=== PATIENT | female | born 1980 | race Caucasian/White ===

== ENCOUNTER 2016-08-16 09:30 | Emergency (ER) | payer OTHER ==
[2016-08-16 09:44] VITALS: BP 109/76; PULSE 72; TEMP 97.7; BMI 28.3
[2016-08-16] MEDS ORDERED: OXYCODONE/APAP 5/325MG COMBO TABLET PO ONE (10:40)
[2016-08-16] MEDS ORDERED: OXYCODONE/APAP 5/325MG COMBO TABLET ONE (10:45)
--- NOTE | 2016-08-16 10:56 | PDOC ---
History of Present Illness - General Chief Complaint: Pain, Acute Stated Complaint: FALL/ SWOLLEN RT KNEE Time Seen by Provider: 08/16/16 10:07 History Source: Patient Exam Limitations: No Limitations - History of Present Illness Initial Comments: 08/16/16 10:52 08/16/16 11:29 tripped on shoelace and fell onto left knee- unable to bend or bear weight . 08/16/16 11:41 Occurred: reports: just prior to arrival, this morning Severity: reports: mild, moderate Pain Location: reports: lower extremity (left patella ) Method of Injury: Yes: fall Modifying Factors: improves with: None Associated Symptoms (Fall): denies symptoms Past History - Travel Traveled outside of the country in the last 30 days: No Close contact w/someone who was outside of country & ill: No - Past Medical History Allergies/Adverse Reactions: Allergies Allergy/AdvReac Type Severity Reaction Status Date / Time No Known Allergies Allergy Verified 08/16/16 09:37 Home Medications: Ambulatory Orders Oxycodone HCl/Acetaminophen [Percocet 5-325 mg Tablet -] 1 - 2 tab PO Q4H PRN # 20 tablet MDD 4 08/16/16 Other medical history: denies - Psycho/Social/Smoking Cessation Hx Suicidal Ideation: No Smoking History: Never smoked Information on smoking cessation initiated: No Hx Alcohol Use: No Drug/Substance Use Hx: No Substance Use Type: None Trauma Specific PMHX - Complaint Specific PMHX Back Injury: No Neck Injury: No Review of Systems - Review of Systems Able to Perform ROS?: Yes Is the patient limited Serbian proficient: Yes Constitutional: Yes: See HPI, Malaise. No: Symptoms Reported HEENTM: Yes: See HPI. No: Symptoms Reported Respiratory: Yes: See HPI. No: Symptoms reported Musculoskeletal: Yes: Symptoms Reported, Joint Pain, Joint Swelling, Joint Stiffness All Other Systems: Reviewed and Negative *Physical Exam - Vital Signs Last Vital Signs Temp Pulse Resp BP Pulse Ox 97.7 F 72 18 109/76 99 08/16/16 09:35 08/16/16 09:35 08/16/16 09:35 08/16/16 09:35 08/16/16 09:35 - Physical Exam General Appearance: Yes: Appropriately Dressed, Apparent Distress, Mild Distress HEENT: positive: MARIA DOLORES, Normal ENT Inspection, TMs Normal, Pharynx Normal Musculoskeletal: positive: Decreased Range of Motion. negative: Normal Inspection Extremity: positive: Normal Inspection, Swelling (ecchymosis to patella/ non mobile and unable to bend at knee. Neuro vascular intact to foot) Integumentary: positive: Dry, Warm, Pale Neurologic: positive: mangle press catcher II-XII NML intact, Fully Oriented, Alert, Normal Mood/ Affect, Normal Response, Motor Strength 09/08 ED Treatment Course - RADIOLOGY Radiology Studies Ordered: Category Date Time Status KNEE 3 POS-RIGHT [RAD] Stat Radiology 08/16/16 10:08 Completed - Medications Given in the ED: ED Medications Discontinued Medications Generic Name Dose Route Start Last Admin Trade Name Freq PRN Reason Stop Dose Admin Oxycodone/Acetaminophen 1 combo 08/16/16 10:40 08/16/16 10:46 Percocet 5/325 - PO 08/16/16 10:41 1 combo ONCE ONE Administration Progress Note - Progress Note Progress Note: Comminuted fracture patella, knee immobilizer placed. Discussed with RAMONA Nation for Dr. Jackson's group who stated will see patient in office this week for further evaluation and possible further treatment. Patient medicated with Percocet and given #20 tablets for pain relief *DC/Admit/Observation/Transfer Diagnosis at time of Disposition: Comminuted fracture of left patella Qualifiers: Encounter type: initial encounter Fracture type: closed Qualified Code(s): S82.042A - Displaced comminuted fracture of left patella, initial encounter for closed fracture - Discharge Dispostion Disposition: HOME Condition at time of disposition: Stable Admit: No - Referrals Referrals: Brendan Jackson MD [Staff Physician] - - Patient Instructions Printed Discharge Instructions: DI for Patella Fracture Additional Instructions: Rest, ice to area on and off for 15 minutes 4-6 times a day Avoid heavy lifting or exercise until pain and swelling is resolved or until further directed Keep area highly elevated to reduce swelling Use splints/Axel wrap as directed Followup with orthopedist in one to 2 days if not improving, if significantly improved may wait one week for followup with orthopedist May use ibuprofen 2-200 mg tablets every 6 hours as needed for pain Percocet one or 2 tablets every 6 hours for severe pain - Post Discharge Activity Work/School Note: Back to Work
== END 2016-08-16 11:40 | disposition home or self-care (01) ==
LOC: JERFT 09:30
PROC: 2W3MX1Z Immobilization of Left Lower Extremity using Splint (ICD-10-PCS; principal; 2016-08-16)
DX: S82.042A Displaced comminuted fracture of left patella, initial encounter for closed fracture (principal); W18.09XA Striking against other object with subsequent fall, initial encounter; Y93.89 Activity, other specified; Y92.89 Other specified places as the place of occurrence of the external cause
CPT/HCPCS: 73562-TC-RT; 99282-25

== ENCOUNTER 2016-08-24 08:56 | Day surgery (SDC) | payer OTHER ==
[2016-08-22 12:13] VITALS: BMI 29.2
[2016-08-24] MEDS ORDERED: MIDAZOLAM HCL 2 MG/2 ML SINGLE DOSE VIAL ONE ×2 (12:08→12:57)
[2016-08-24] MEDS ORDERED: DEXAMETHASONE SOD PHOSPHATE/PF 10 MG/ML SDV ONE (12:08)
[2016-08-24] MEDS ORDERED: ROPIVACAINE HCL 0.5% 30ML VIAL ONE (12:09)
[2016-08-24] MEDS ORDERED: ONDANSETRON 4 MG/2 ML VIAL ONE (12:57)
[2016-08-24] MEDS ORDERED: LIDOCAINE HCL/PF 2% SDV 5ML VIAL ONE (12:57)
[2016-08-24] MEDS ORDERED: LIDOCAINE HCL 4% TOPICAL SOLN (50 ML/BOTTLE) ONE (12:57)
[2016-08-24] MEDS ORDERED: KETOROLAC TROMETHAMINE 30 MG/1 ML VIAL ONE (12:57)
[2016-08-24] MEDS ORDERED: DEXAMETHASONE SOD PHOSPHATE 4 MG/1 ML VIAL ONE (12:57)
[2016-08-24] MEDS ORDERED: PROPOFOL 20 ML ONE ×4 (12:57→13:51)
[2016-08-24] MEDS ORDERED: ceFAZolin SODIUM 1 GM VIAL ONE (12:57)
[2016-08-24] MEDS ORDERED: LIDOCAINE 1%/EPI 1:100000 (50 ML MULTI DOSE VIAL) INF ONE (14:35)
[2016-08-24] MEDS ORDERED: GUM MASTIC/STORAX/MSAL/ALCOHOL 1 DRP DROPSBTL MC ONE (14:39)
--- NOTE | 2016-08-24 15:49 | OP ---
DATE OF OPERATION: 08/24/2016 PREOPERATIVE DIAGNOSIS: Right comminuted patellar fracture. POSTOPERATIVE DIAGNOSIS: Right comminuted patellar fracture. PROCEDURE: Right patellar open reduction internal fixation. SURGEON: Elian Barfield M.D. VALIDATION ARCHITECT: Chapis Conway [facility], whose skillful assistance was necessary for the safe and timely performance of this procedure. Ms. Conway was able to provide patient positioning, in the insertion of orthopedic hardware, in fracture reduction, as well as retraction during the procedure while the tech was working at the back table on passage and preparation of instruments. TOURNIQUET TIME: 71 minutes. POSTOPERATIVE CONDITION: Stable. COMPLICATIONS: None. IMPLANTS: Alexander 4.0 mm cannulated screws x3. INDICATION: This is a pleasant young lady who has suffered a fall and landed on her kneecap. She was found to have a comminuted displaced patella fracture. Treatment options including nonoperative versus operative management were discussed. Given disruption of the articular surface, operative management was recommended. Operative risks were reviewed in detail, including bleeding, infection, neurovascular injury, need for further surgery, nonunion, malunion, posttraumatic arthrosis, arthrofibrosis. We reviewed medical risks such as heart attack, stroke, DVT, PE and . We reviewed the postoperative protocol including prolonged bracing given the comminution of the fracture versus casting. We reviewed DVT prophylaxis. We reviewed use of antibiotic prophylaxis. I addressed all the patient's questions. She voiced understanding and elected to proceed. PROCEDURE: The patient was brought to the operating room after administration of regional block. General anesthesia was administered. The right lower extremity was then prepped and draped in the usual sterile fashion. A preoperative dose of antibiotics are given, and the usual timeout procedure was performed. At this point, the incision was planned out over the anterior aspect of the knee. This was carried out after exsanguination of the limb and placement of the tourniquet. Straight down through skin to subcutaneous tissue. Electrocautery was used to control hemostasis. Using sharp dissection, the periosteum was elevated both medially and laterally, exposing the fracture site. The fracture site was highly comminuted. Multiple small fragments were moved. The fracture site was copiously irrigated. It should be noted the large hematoma was evacuated on exposing the fracture site. The fracture reduction clamp was now placed across the main proximal and main distal fragment in order to obtain a provisional reduction. This was verified fluoroscopically in 2 planes. K-wires then placed across the fracture site, 4 in total. At this point, the soft tissue about the K-wire was spread, and the drill for the 4-0 cannulated screw set was passed over the wire. The wire was measured, and a 4-0 fully threaded screw was inserted. No compression was desired, as this would over-compress the fracture site and result in a loss of reduction. This was then repeated 2 more times for a total of 3 screws connecting the main proximal and distal fragments. Screw placement as well as fracture reduction were verified fluoroscopically in 2 planes. No, to provide a tension band effect, a number 2 Fiberwire suture was passed through to the screw and then tied down, compressing in some of the ancillary fragments which were due to a coronal split. Fracture reduction and hardware placement at this point was examined both visually and fluoroscopically. Both fracture reduction and hardware placement were satisfactory. The wound was copiously irrigated once more. Using 0 Vicryl, deep soft tissues were closed over the patella. Subcutaneous tissue was approximated using 2-0 Vicryl. The skin was closed using running 3-0 nylon. All the excess K-wires had been removed by this point. The skin was now injected with lidocaine with epinephrine to provide some postoperative anesthesia. Sterile dressings were placed. The tourniquet was let down. Patient was placed into a well padded cylinder type cast. She was transferred to the recovery room in stable condition. Saiv [id number] MTDD
[2016-08-24] MEDS ORDERED: oxyCODONE HCL 5 MG TABLET ONE (16:51)
[2016-08-24 17:56] VITALS: PULSE 82
[2016-08-24 18:03] VITALS: BP 126/77; TEMP 98.8
== END 2016-08-24 18:00 | disposition home or self-care (01) ==
LOC: FASU 08:56
PROVIDERS: ATTEND Orthopaedic Surgery Sports Medicine
PROC: 0QSD04Z Reposition Right Patella with Internal Fixation Device, Open Approach (ICD-10-PCS; principal; 2016-08-24 13:18)
DX: S82.041A Displaced comminuted fracture of right patella, initial encounter for closed fracture (principal); W18.30XA Fall on same level, unspecified, initial encounter; Y93.9 Activity, unspecified; Y92.9 Unspecified place or not applicable
CPT/HCPCS: 73560-TC-RT; 76001-TC; 84703; 94760